=== PATIENT | female | born 1965 | race Caucasian/White ===

== ENCOUNTER 2021-06-18 11:11 | Emergency (ER) | payer OTHER, SELFPAY ==
--- NOTE | ~2021-06-18 | XR_ITS ---
CORRECTED REPORT WRONG ORDER TITLE CHANGE 06/20/21 PK EXAMINATION: XR hip RT min 2V w AP pelvis INDICATION: Right hip pain after fall TECHNIQUE: AP view the pelvis and two views of the right hip are obtained. COMPARISON: None available FINDINGS: Bone alignment is normal. There is no fracture. There is mild osteoarthritis of the hips. Incidental note is made of mildly dilated small bowel loops in the midabdomen. IMPRESSION: 1. No acute osseous abnormality. 2. Mildly dilated small bowel loops of the mid abdomen. Correlate for abdominal pain. Reviewed, dictated and finalized at location A. [facility] [place]
--- NOTE | ~2021-06-18 | XR_ITS ---
EXAMINATION: XR knee RT 3V DATE: 06/18/2021 13:38 INDICATION: Right knee swelling. Injury. TECHNIQUE: 3 views of right knee were obtained. COMPARISON: None. FINDINGS: There is a split depression fracture of lateral tibial plateau. There is a nondisplaced fra cture of medial tibial plateau. There is mild osteoarthritis of patellofemoral compartment characteri zed by a tiny marginal osteophyte. There is a large lipohemarthrosis. IMPRESSION: 1. Fractures of medial and lateral tibial plateaus. 2. Large lipohemarthrosis. Reviewed, dictated and finalized at location E.
[2021-06-18 11:20] VITALS: BP 127/74; PULSE 91; RESP 18; TEMP 37.1; O2SAT 98
--- NOTE | 2021-06-18 12:26 | ED.LOWEXIN ---
HPI - Extremity Injury (Lower) General Chief Complaint: Extremity Injury, Lower Stated Complaint: right knee injury Time Seen by Provider: 06/18/21 12:25 Source: patient and family Limitations: no limitations History of Present Illness HPI Narrative: Patient is 56 years old white female presents with severe right knee pain after a fall last night. Patient reports that she had some alcohol last night, her dog ran and head on collision with her right knee. Patient flew in the air and landed on the ground, denies loss of consciousness, head or neck injury. Denies other injuries. Related Data Allergies Allergy/AdvReac Type Severity Reaction Status Date / Time hydrocodone Allergy Mild Nausea Verified 06/18/21 11:24 Review of Systems Review of Systems: CONSTITUTIONAL: Denies fever, chills, or sweats. EYES: Denies visual changes, redness, or discharge. ENT: Denies rhinorrhea, congestion, sore throat, or otalgia. CARDIOVASCULAR: Denies chest pain, palpitations, or edema. RESPIRATORY: Denies cough or dyspnea. GASTROINTESTINAL: Denies abdominal pain, nausea, vomiting, or diarrhea. GENITOURINARY: Denies dysuria or hematuria. SKIN: Denies rash or itching. MUSCULOSKELETAL: Denies back pain, joint pain, or myalgia. NEUROLOGIC: Denies headache, numbness, or weakness. PSYCHIATRIC: Denies anxiety or depression. Exam Narrative: General appearance: Well-developed, well-nourished Skin: Normal color Head: Normocephalic, nontraumatic Eyes: Clear conjunctiva ENT: Oropharynx normal, ears normal, nose normal Neck: Supple, nontender Chest and respiratory: Airway patent, no respiratory distress, no accessory muscle use Heart: Regular rate/rhythm Abdomen: Soft, nontender, no organomegaly, quiet bowel sounds Vascular: Normal peripheral pulses, normal capillary refill. Musculoskeletal: Right knee showed diffuse swelling, diffuse tenderness, severe limited range of motion. Neurologic: Alert and oriented ?3, [employer] is normal as tested, no gross motor deficit Course Consultations Consultation #1: Dr. Pleitez Transfer patient to [facility] Consultation #2: DR KNIHGT, RENE [facility] Date: 06/18/21 Time: 15:25 Vital Signs Vital signs: Vital Signs Temperature 37.1 C 06/18/21 11:20 Pulse Rate 91 06/18/21 11:20 Respiratory Rate 18 06/18/21 11:20 Blood Pressure 127/74 06/18/21 11:20 Pulse Oximetry 98 06/18/21 11:20 Temperature 37.1 C 06/18/21 11:20 Pulse Rate 91 06/18/21 11:20 Respiratory Rate 18 06/18/21 11:20 Blood Pressure 127/74 06/18/21 11:20 Pulse Oximetry 98 06/18/21 11:20 MDM - Extremity Injury (Lower) Differential Diagnosis Differential diagnosis: Likely acute internal derangement of knee and fracture of hip Critical Care Time Critical Care Time Critical Care Time: Yes Total Critical Care Time: 30 Discharge Plan Discharge Clinical Impression: Closed fracture of tibial plateau Qualifiers: Encounter type: initial encounter Laterality: right Qualified Code(s): S82.141A - Displaced bicondylar fracture of right tibia, initial encounter for closed fracture Patient Disposition: Acute Care Hospital Condition: Stable Additional Instructions: Transfer to [facility] ED Follow-up/Referrals: PHYSICIAN NOT ON STAFF,NONSTAFF [Primary Care Provider] -
[2021-06-18] MEDS: ONDANSETRON INJ 4 MG/2 ML VIAL IV PUSH (12:48)
[2021-06-18] MEDS: MORPHINE SULFATE (*CRX) 4 MG/ML INJ IV PUSH (12:49)
[2021-06-18] MEDS: HYDROmorphone HCL INJ (*CRX) 1 MG/ML SYR 0.5 MG IV PUSH ×2 (14:18→15:40)
[2021-06-18 16:37] VITALS: BP 126/78; PULSE 86; RESP 18; O2SAT 99
== END 2021-06-18 16:38 | disposition short-term general hospital (02) ==
PROVIDERS: Emergency Provider Emergency Medicine
DX: S82.141A Displaced bicondylar fracture of right tibia, initial encounter for closed fracture (principal); W54.1XXA Struck by dog, initial encounter
CPT/HCPCS: 73502; 73562; 96374; 96375; 96376; 99285; J1170; J2270; J2405

== ENCOUNTER 2021-10-21 15:30 | Outpatient (RCR) | payer BC, SELFPAY ==
--- NOTE | 2021-08-24 13:47 | PCPTNOTE ---
pt was 20 min late for initial eval today;
--- NOTE | 2021-08-24 13:47 | PTOPEVAL ---
PHYSICAL THERAPY EVALUATION AND PLAN OF CARE 08-24-21 Thank you for referring Irish Espinoza to [facility].? The PT order is dated 07-27-21; pt reports she had problems finding a facility that accepted her insurance. She is scheduled to be seen for therapy? 2 x/week for 4 weeks. Please review, sign, date and return this plan of care BINH. I agree with and certify that the following plan of care is medically necessary. Referring Physician Date Attending Provider: Nick Cisneros MD Evaluation Information Diagnosis R tibial plateau fracture s/p surgical repair Onset 06-20-21 Subjective Information pt was standing and dog ran Query Text:As Reported By Patient/ into her and knocked her over; Family have not had any therapy since home from hospital; has been doing some leg exercises at home; have hinged knee brace, wear when walking sometimes when in home, does not wear it; Activity Level (Last 3 Months) Occupation retired Home Setting Home Type House,Multiple Levels Environmental Barriers Stairs, Greater than 4 Living Situation With Spouse Mobility Assistive Devices (Used Last 3 Walker, Wheeled Months) Bathroom Environment Shower, Curtain Comments Additional Prior Level of Function split level home, sits on her Comments butt to go down stairs to the walk in shower; prior to this surgery---indep with all tasks, active; Pain Assessment Pain Scale Pain Scale Used Numeric (1 - 10) Self Report Pain Assessment Right Leg(s) Reported Pain Level 1 Pain Description Aching Pain Frequency Chronic,Continuous Other Pain Description deep inside knee and anterior proximal tibial area Lowest Pain Intensity 1 Greatest Pain Intensity 2 Pain Aggravating Factors Exercise/Activity Pain Behaviors Anxious,Grimacing Additional Pain Score Comments is not using ice;some discomfort with leg and sleeping-varies with amount of sleep/night; usually sleep on sides or back; discussed use of pillow between knees with sleeping and use of brace to stabilize knee; educated on use of ice and elevation for pain and
--- NOTE | 2021-09-14 09:20 | PCPTNOTE ---
Patient called & cancelled scheduled appointment this date due to I'm just unable to make it in.
--- NOTE | 2021-09-23 12:02 | PCPTNOTE ---
pt was 20 min late for today's reeval appt;
--- NOTE | 2021-09-23 12:02 | PTOPEVAL ---
PHYSICAL THERAPY RE-EVALUATION AND UPDATED PLAN OF CARE 09-23-21 Refer to the clinical summary below, for her status today, compared to the initial evaluation. The goals were partially achieved. Continue PT treatment, 2x/wk for 4 weeks. Thank you for referring Irish Espinoza to [facility].? Please review, sign, date and return this updated plan of care BINH. I agree with and certify that the following plan of care is medically necessary. Referring Physician Date Attending Provider: Nick Cisneros MD Subjective Information Irish reports: is having Query Text:As Reported By Patient/ ankle pain; still have Family stiffness and pain in knee; have only been out to 2 places -- movies and short shopping trip to [employer]- and it about killed me; going for therapy is about only time out of the house; Pain Assessment Pain Scale Pain Scale Used Numeric (1 - 10) Self Report Pain Assessment Right Leg(s) Reported Pain Level 2 Pain Description Shooting,Soreness,Stabbing, Tightness Pain Frequency Chronic,Continuous Other Pain Description anterior renee- tibia, distal femur Lowest Pain Intensity 1 Greatest Pain Intensity 7 Pain Aggravating Factors Walking,Weight Bearing/ Standing Other Pain Aggravating Factors tender to touch and pressure on leg Pain Behaviors Anxious,Grimacing Additional Pain Score Comments R ankle hurts also; issues with getting comfortable to go to sleep- knee and ankle hurt ; standing/walk tolerance 20 min then have to sit down; my family is pushing me to do more and expect me to cook and more activity--back, neck and leg hurting; is not using knee brace-states it was stuck on an angle and quit wearing it ; Interventions Used Interventions Used By Clinicians Education,Exercise Pain Relief Interventions Used By Ice,Medication,Position Change Patient Other Alleviating Interventions extra strength tylenol Gross Lower Extremity Range of Motion sitting: active R knee ROM: Comments flexion 105'/ extension (-25') ; in supine passive stretch extension to (-8') Gross Lower Extremity Strength R LE functional strength
--- NOTE | 2021-10-11 16:24 | PCPTNOTE ---
Patient called & cancelled scheduled appointment this date 40 min before appointment time, no reason given.
--- NOTE | 2021-10-13 15:58 | PCPTNOTE ---
On 10/13/21, the student, Dereje Woodard, provided care and completed [facility] documentation on this patient. I have reviewed the student's documentation and agree with the findings.
--- NOTE | 2021-10-18 17:05 | PCPTNOTE ---
On 10/18/21, the student, Nora Woodard, provided care and completed [facility] documentation on this patient. I have reviewed the student's documentation and agree with the findings.
--- NOTE | 2021-10-21 15:44 | PCPTNOTE ---
pt was 10 min late for today's appt/reeval;
--- NOTE | 2021-10-21 16:15 | PTOPEVAL ---
PHYSICAL THERAPY DISCHARGE REPORT 10-21-21 Refer to the clinical summary below, for her status today, compared to the last reevaluation. The goals were achieved, except the knee extension ROM is (-5'). Emphasis was placed on knee extension stretching. She is aware of this and is independent with her home exercise program. Discharge PT services at this time. Thank you for referring Irish Espinoza to [facility].? Please review, sign, date and return this Discharge report BINH. I agree with and certify that the following plan of care is medically necessary. Referring Physician Date Attending Provider: Nick Cisneros MD Subjective Information Irish reports: knee has Query Text:As Reported By Patient/ finally broken lose and Family started moving; doing good going up/down stairs at home, do every day; doing leg exercises; been shopping and doing more; problems getting on/off floor and picking things up off floor; Pain Assessment Pain Scale Pain Scale Used Numeric (1 - 10) Self Report Pain Assessment Right Leg(s) Pain Description Aching,Soreness,Tightness Pain Frequency Chronic,Continuous Other Pain Description stiff in knee; when move wrong little pain few seconds only Lowest Pain Intensity 1 Greatest Pain Intensity 1 Pain Aggravating Factors Walking,Weight Bearing/ Standing Additional Pain Score Comments R ankle is better, sometimes just a little sore or tenderness over lateral aspect ; reports: no problems with sleeping; standing/walking about 1 hour then sit/rest 15 min and go again Pain Relief Interventions Used By Inactivity/Rest,Medication, Patient Sitting Other Alleviating Interventions over the counter meds Gross Lower Extremity Range of Motion sitting active R knee ROM: Comments extension (-8')/ flexion 120'; supine with stretch passive to (-5') Gross Lower Extremity Strength functional strength testing R LE: - single leg standing 27 sec - standing with 5# ankle wt and 1 UE support: hip abduction x 20 reps; knee flexion x 20 reps; ------ verbal review of HEP, to co
== END 2021-10-25 07:26 | disposition home or self-care (01) ==
LOC: ANHPT 15:30
DX: S82.141D Displaced bicondylar fracture of right tibia, subsequent encounter for closed fracture with routine healing (principal)
CPT/HCPCS: 97110; 97112; 97116; 97140; 97161; 97530